=== PATIENT | male | born 1980 | race African-American/Black ===

== ENCOUNTER 2017-03-02 13:38 | Emergency (ER) | payer OTHER ==
[2017-03-02 13:54] VITALS: TEMP 98.4
--- NOTE | 2017-03-02 14:34 | ED ---
General Adult HPI - General Chief complaint: Abdominal Pain Stated complaint: Abd Pain Time Seen by Provider: 03/02/17 14:04 Source: patient, RN notes reviewed Mode of arrival: ambulatory Limitations: no limitations - History of Present Illness Initial comments: 36-year-old male presents to the emergency department with a chief complaint of scrotal and lower pelvic pain. He states this started he was going to the bathroom today. She has a history of hernia when he was a young child. He states that he felt like almost a bulge there and then he pushed it back in. He states he does not Testicle moving or feeling his hernia. He stated complaint down feels better than standing up. He denies any changes in urination. denies any recent fever or chills with this. He was concerned due to the continued pain so he thought that he should be seen. Patient denies any recent fever, chills, shortness of breath, chest pain, back pain, nausea vomiting, numbness or tingling, dysuria or hematuria, constipation or diarrhea, headaches or visual changes, or any other current symptoms. - Related Data Home Medications Medication Instructions Recorded Confirmed Albuterol Inhaler [Ventolin Hfa 1 - 2 puff INHALATION RT-Q6H PRN 03/02/17 Inhaler] Allergies Allergy/AdvReac Type Severity Reaction Status Date / Time Penicillins Allergy Rash/Hives Verified 03/02/17 14:33 Review of Systems ROS Statement: Those systems with pertinent positive or pertinent negative responses have been documented in the HPI. ROS Other: All systems not noted in ROS Statement are negative. Past Medical History Past Medical History: Asthma, GERD/Reflux History of Any Multi-Drug Resistant Organisms: None Reported Past Surgical History: Hernia Repair Past Psychological History: No Psychological Hx Reported Smoking Status: Current every day smoker Past Alcohol Use History: None Reported Past Drug Use History: None Reported General Exam Limitations: no limitations General appearance: alert, in no apparent distress ENT exam: Present: normal exam, mucous membranes moist Neck exam: Present: normal inspection. Absent: tenderness, meningismus, lymphadenopathy Respiratory exam: Present: normal lung sounds bilaterally. Absent: respiratory distress, wheezes, rales, rhonchi, stridor Cardiovascular Exam: Present: regular rate, normal rhythm, normal heart sounds. Absent: systolic murmur, diastolic murmur, rubs, gallop, clicks GI/Abdominal exam: Present: soft, normal bowel sounds. Absent: distended, tenderness, guarding, rebound, rigid exam: Present: testicular tenderness (Bilateral), circumcision, other (no hernia palpated). Absent: urethral discharge, scrotal swelling, vertical testicular lie Extremities exam: Present: normal inspection, full ROM, normal capillary refill. Absent: tenderness, pedal edema, joint swelling, calf tenderness Neurological exam: Present: alert, oriented X3 Psychiatric exam: Present: normal affect, normal mood Skin exam: Present: warm, dry, intact, normal color. Absent: rash Course Vital Signs 03/02/17 13:50 Temperature 98.4 F Pulse Rate 68 Respiratory 18 Rate Blood Pressure 131/86 O2 Sat by Pulse 97 Oximetry Medical Decision Making - Medical Decision Making 36-year-old male presents to the emergency department with a chief complaint of scrotal pain. This time there is suspicion for inguinal hernia. At this time we discussed close follow-up with the surgeon. At this time we did discuss return parameters all questions. Patient stated that he understood and he is agreement with the plan. All questions have been answered. He'll be discharged. Disposition Clinical Impression: Left inguinal hernia Disposition: HOME SELF-CARE Condition: Stable Instructions: Inguinal Hernia (ED) Additional Instructions: Please use medication as discussed. Please follow up with family doctor if symptoms have not improved over the next two days. Please return to the emergency room if your symptoms increase or worsen or for any other concerns. Referrals: Jossie Lan MD [STAFF PHYSICIAN] - 1-2 days Time of Disposition: 15:56
--- NOTE | 2017-03-02 15:24 | US ---
EXAMINATION TYPE: US scrotum with doppler. Grayscale and color Doppler Duplex imaging performed of t he scrotum. DATE OF EXAM: 03/02/2017 COMPARISON: NONE CLINICAL HISTORY: Pain. Patient states left sided pain starting today. Patient states feeling someth ing in left groin and pushing it down toward scrotal sac. EXAM MEASUREMENTS: TESTICLES: Right Testicle: 3.4 x 3.0 x 2.0 cm Left Testicle: 2.8 x 2.9 x 2.4 cm EPIDIDYMIS HEAD: Right Epididymis: 1.0 x 1.4 x 0.9 cm Left Epididymis: 1.1 x 1.0 x 0.6 cm Doppler performed to assess for testicular vascularity; good bilateral color flow and waveforms are s een. There is no evidence of testicular torsion. Presence of hydroceles: Small left Presence of varicoceles: no Echogenic abnormality in left scrotal sac, lateral to testis. Grayscale, color Doppler, spectral Doppler imaging performed of the scrotum. Testicular echotexture i s homogenous and symmetric. IMPRESSION: No evident testicular torsion. Correlate for inguinal hernia.
[2017-03-02 16:16] VITALS: BP 116/59; PULSE 58; RESP 16
== END 2017-03-02 16:16 | disposition home or self-care (01) ==
LOC: EC 13:38
DX: K40.90 Unilateral inguinal hernia, without obstruction or gangrene, not specified as recurrent (principal); F17.200 Nicotine dependence, unspecified, uncomplicated; Z88.0 Allergy status to penicillin
CPT/HCPCS: 76870; 93975; 99284

== ENCOUNTER → 2017-03-16 | Outpatient (CLI) | payer OTHER ==
--- NOTE | 2017-03-16 21:27 | CT ---
EXAMINATION TYPE: CT abdomen pelvis w con DATE OF EXAM: 03/16/2017 COMPARISON: NONE HISTORY: Lower abd pain x1 month. CT DLP: 723 mGycm Automated exposure control for dose reduction was used. TECHNIQUE: Helical acquisition of images was performed from the lung bases through the pelvis. CONTRAST: Performed with Oral Contrast and with IV Contrast, patient injected with 100ml mL of Omnipaque 300. FINDINGS: Lung bases are clear of consolidation. There is no pleural effusion. The liver spleen pancreas gallbl adder appear normal. Bile ducts are not dilated. There is no adrenal mass. Kidneys show satisfactory contrast opacification. There is no hydronephrosis. There is no retroperitoneal adenopathy. Bladder d istends smoothly. Urinary bladder is large. I see no intestinal wall thickening. There are no dilated loops. Appendix is not definitely seen. There is no sign of appendicitis. There is no evidence of a pelvic mass. There is no evidence of a hernia. Lumbar spine appears normal. IMPRESSION: NEGATIVE CT SCAN OF THE ABDOMEN AND PELVIS. I DO NOT SEE A CAUSE FOR LOWER ABDOMINAL PAIN.
== END | disposition home or self-care (01) ==
LOC: RADCTMAIN 20:51
PROVIDERS: ATTEND Surgery
DX: R10.31 Right lower quadrant pain (principal); R10.32 Left lower quadrant pain
CPT/HCPCS: 74177; Q9967

== ENCOUNTER 2017-06-06 03:32 | Inpatient (IN) | payer OTHER ==
[2017-06-06] MEDS ORDERED: SODIUM CHLORIDE 0.9% 500 ML IV ONE ×2 (03:35→04:21)
[2017-06-06] MEDS ORDERED: LORazepam 2 MG/ML INJ IV STA (03:37)
--- NOTE | 2017-06-06 03:39 | ED ---
General Adult HPI - General Stated complaint: hallucinations Time Seen by Provider: 06/06/17 03:34 Source: patient, police, EMS, RN notes reviewed - History of Present Illness Initial comments: 37-year-old male brought in by EMS and police. EMS states that initial call was for dyspnea. Patient had run several blocks. He felt he was being chased. While vitals are being obtained by EMS, the patient became very agitated, patient was hallucinating. Police were called and patient was very uncooperative. Did require multiple police officers to restrain the patient. He was he was tased by police. Patient was brought in in leather restraints. He is currently on parole with a left lower extremity tethered. Denies any substance ingestion. Denies illicit drugs or alcohol. He states he has not slept in the past one to 2 days. No known psychiatric illness. - Related Data Home Medications Medication Instructions Recorded Confirmed Albuterol Inhaler [Ventolin Hfa 1 - 2 puff INHALATION RT-Q6H PRN 03/02/17 Inhaler] Allergies Allergy/AdvReac Type Severity Reaction Status Date / Time Penicillins Allergy Rash/Hives Verified 03/02/17 14:33 Review of Systems ROS Statement: Those systems with pertinent positive or pertinent negative responses have been documented in the HPI. ROS Other: All systems not noted in ROS Statement are negative. Past Medical History Past Medical History: Asthma, GERD/Reflux History of Any Multi-Drug Resistant Organisms: None Reported Past Surgical History: Hernia Repair Past Psychological History: No Psychological Hx Reported Smoking Status: Current every day smoker Past Alcohol Use History: None Reported Past Drug Use History: None Reported General Exam General appearance: alert, appears intoxicated, in distress Head exam: Present: atraumatic, normocephalic Eye exam: Present: normal appearance, PERRL, EOMI Neck exam: Present: normal inspection. Absent: tenderness, meningismus Respiratory exam: Present: normal lung sounds bilaterally. Absent: respiratory distress, wheezes Cardiovascular Exam: Present: normal rhythm, tachycardia GI/Abdominal exam: Present: soft. Absent: distended, tenderness, guarding Extremities exam: Present: normal inspection, normal capillary refill. Absent: tenderness Back exam: Present: normal inspection Neurological exam: Present: alert. Absent: motor sensory deficit Psychiatric exam: Present: agitated, anxious Skin exam: Present: warm, dry, intact. Absent: cyanosis, diaphoretic Course Vital Signs 06/06/17 06/06/17 06/06/17 03:33 03:48 04:12 Temperature Pulse Rate 159 H 162 H 153 H Respiratory 35 H 30 H 18 Rate Blood Pressure 162/74 167/97 130/60 O2 Sat by Pulse 99 99 96 Oximetry 06/06/17 06/06/17 06/06/17 04:44 05:04 05:23 Temperature Pulse Rate 154 H 111 H 101 H Respiratory 22 18 18 Rate Blood Pressure 111/54 111/55 93/49 O2 Sat by Pulse 100 100 100 Oximetry 06/06/17 06/06/17 06/06/17 05:27 06:03 06:27 Temperature 97.7 F Pulse Rate 104 H 97 Respiratory 18 18 Rate Blood Pressure 115/59 116/67 O2 Sat by Pulse 100 100 Oximetry EKG Findings - EKG Comments: EKG Findings:: Sinus tachycardia, right superior axis deviation, rate of 155, ME interval 114, QRS duration 76, QTC 424 Procedures - Restraint - Face to Face Restraint Occurrence 1 Patient's Immediate Situation: Endangers self safety, Endangers others' safety, Endangers staff safety, Violent behavior Patient's Reaction to the Intervention: Uncooperative, Angry, Hostile, Nervous, Anxious, Aggressive Patient's Medical & Behavioral Condition: Awake, Alert, Anxious, Agitated Need to Continue or Terminate Restraint or Seclusion: Continue Face to Face Eval of Restraint Date: 06/06/17 Face to Face Eval of Restraint Time: 03:40 Medical Decision Making - Medical Decision Making 37-year-old male presenting with acute psychosis and drug overdose. Patient is severely agitated and psychotic. Patient is restrained with leather restraints , given Ativan. On initial evaluation, patient's heart rate is significantly elevated in the 160s. EKG shows sinus tachycardia. Laboratory studies are obtained, these are concerning for severe acidosis with nondetectable CO2. Labs are repeated which shows a lactic acidosis of 15 which is severely high and a CO2 of 12. ABG at that time shows normal pH. Patient given multiple boluses of normal saline. He started on a bicarbonate drip. Case is discussed with the pulmonary junior electrical engineer Dr. Bentley who will accept the patient to the ICU for close monitoring. Psychiatry will be placed on consult for evaluation. Diagnosis: Acute psychosis, rhabdomyolysis, lactic acidosis, severe anion gap metabolic acidosis. - Lab Data Result diagrams: 06/06/17 04:05 06/06/17 05:33 Lab Results 06/06/17 06/06/17 06/06/17 Range/Units 04:05 04:05 04:05 WBC 7.7 (3.8-10.6) k/uL RBC 5.44 (4.30-5.90) m/uL Hgb 16.2 (13.0-17.5) gm/dL Hct 53.7 H (39.0-53.0) % MCV 98.6 (80.0-100.0) fL MCH 29.7 (25.0-35.0) pg MCHC 30.1 L (31.0-37.0) g/dL RDW 13.1 (11.5-15.5) % Plt Count 308 (150-450) k/uL Neutrophils % 62 % Lymphocytes % 31 % Monocytes % 5 % Eosinophils % 1 % Basophils % 0 % Neutrophils # 4.7 (1.3-7.7) k/uL Lymphocytes # 2.4 (1.0-4.8) k/uL Monocytes # 0.4 (0-1.0) k/uL Eosinophils # 0.0 (0-0.7) k/uL Basophils # 0.0 (0-0.2) k/uL Hypochromasia Marked Sample Site ABG pH (7.35-7.45) ABG pCO2 (35-45) mmHg ABG pO2 (83-108) mmHg ABG HCO3 (21-25) mmol/L ABG Total CO2 (19-24) mmol/L ABG O2 Saturation (94-97) % ABG Base Excess mmol/L Fletcher Test FiO2 % Sodium 148 H (137-145) mmol/L Potassium 4.7 (3.5-5.1) mmol/L Chloride 98 (98-107) mmol/L Carbon Dioxide <5 L* (22-30) mmol/L Anion Gap mmol/L BUN 9 (9-20) mg/dL Creatinine 2.10 H (0.66-1.25) mg/dL Est GFR (CKD-EPI)AfAm 46 (>60 ml/min/1.73 sqM) Est GFR (CKD-EPI)NonAf 40 (>60 ml/min/1.73 sqM) Glucose 268 H (74-99) mg/dL Plasma Lactic Acid Jeremie (0.7-2.0) mmol/L Calcium 10.8 H (8.4-10.2) mg/dL Total Bilirubin 0.7 (0.2-1.3) mg/dL AST 48 (17-59) U/L ALT 21 (21-72) U/L Alkaline Phosphatase 75 (38-126) U/L Creatine Kinase (55-170) U/L Total Protein 9.0 H (6.3-8.2) g/dL Albumin 5.7 H (3.5-5.0) g/dL Urine Opiates Screen (NotDetected) Ur Oxycodone Screen (NotDetected) Urine Methadone Screen (NotDetected) Ur Propoxyphene Screen (NotDetected) Ur Barbiturates Screen (NotDetected) U Tricyclic Antidepress (NotDetected) Ur Phencyclidine Scrn (NotDetected) Ur Amphetamines Screen (NotDetected) U Methamphetamines Scrn (NotDetected) U Benzodiazepines Scrn (NotDetected) Urine Cocaine Screen (NotDetected) U Marijuana (THC) Screen (NotDetected) Serum Alcohol <10 mg/dL 06/06/17 06/06/17 06/06/17 Range/Units 04:43 04:48 04:48 WBC (3.8-10.6) k/uL RBC (4.30-5.90) m/uL Hgb (13.0-17.5) gm/dL Hct (39.0-53.0) % MCV (80.0-100.0) fL MCH (25.0-35.0) pg MCHC (31.0-37.0) g/dL RDW (11.5-15.5) % Plt Count (150-450) k/uL Neutrophils % % Lymphocytes % % Monocytes % % Eosinophils % % Basophils % % Neutrophils # (1.3-7.7) k/uL Lymphocytes # (1.0-4.8) k/uL Monocytes # (0-1.0) k/uL Eosinophils # (0-0.7) k/uL Basophils # (0-0.2) k/uL Hypochromasia Sample Site ABG pH (7.35-7.45) ABG pCO2 (35-45) mmHg ABG pO2 (83-108) mmHg ABG HCO3 (21-25) mmol/L ABG Total CO2 (19-24) mmol/L ABG O2 Saturation (94-97) % ABG Base Excess mmol/L Fletcher Test FiO2 % Sodium 145 (137-145) mmol/L Potassium 4.8 (3.5-5.1) mmol/L Chloride 104 (98-107) mmol/L Carbon Dioxide 12 L (22-30) mmol/L Anion Gap 29 mmol/L BUN 10 (9-20) mg/dL Creatinine 2.00 H (0.66-1.25) mg/dL Est GFR (CKD-EPI)AfAm 49 (>60 ml/min/1.73 sqM) Est GFR (CKD-EPI)NonAf 42 (>60 ml/min/1.73 sqM) Glucose 195 H (74-99) mg/dL Plasma Lactic Acid Jeremie 15.3 H* (0.7-2.0) mmol/L Calcium 10.4 H (8.4-10.2) mg/dL Total Bilirubin 0.5 (0.2-1.3) mg/dL AST 40 (17-59) U/L ALT 16 L (21-72) U/L Alkaline Phosphatase 67 (38-126) U/L Creatine Kinase (55-170) U/L Total Protein 7.7 (6.3-8.2) g/dL Albumin 4.8 (3.5-5.0) g/dL Urine Opiates Screen Not Detected (NotDetected) Ur Oxycodone Screen Not Detected (NotDetected) Urine Methadone Screen Not Detected (NotDetected) Ur Propoxyphene Screen Not Detected (NotDetected) Ur Barbiturates Screen Not Detected (NotDetected) U Tricyclic Antidepress Not Detected (NotDetected) Ur Phencyclidine Scrn Not Detected (NotDetected) Ur Amphetamines Screen Detected H (NotDetected) U Methamphetamines Scrn Detected H (NotDetected) U Benzodiazepines Scrn Not Detected (NotDetected) Urine Cocaine Screen Detected H (NotDetected) U Marijuana (THC) Screen Not Detected (NotDetected) Serum Alcohol mg/dL 06/06/17 06/06/17 06/06/17 Range/Units 04:48 05:22 05:33 WBC (3.8-10.6) k/uL RBC (4.30-5.90) m/uL Hgb (13.0-17.5) gm/dL Hct (39.0-53.0) % MCV (80.0-100.0) fL MCH (25.0-35.0) pg MCHC (31.0-37.0) g/dL RDW (11.5-15.5) % Plt Count (150-450) k/uL Neutrophils % % Lymphocytes % % Monocytes % % Eosinophils % % Basophils % % Neutrophils # (1.3-7.7) k/uL Lymphocytes # (1.0-4.8) k/uL Monocytes # (0-1.0) k/uL Eosinophils # (0-0.7) k/uL Basophils # (0-0.2) k/uL Hypochromasia Sample Site rbrac ABG pH 7.37 (7.35-7.45) ABG pCO2 39 (35-45) mmHg ABG pO2 61 L (83-108) mmHg ABG HCO3 22 (21-25) mmol/L ABG Total CO2 23 (19-24) mmol/L ABG O2 Saturation 90.5 L (94-97) % ABG Base Excess -3.0 mmol/L Fletcher Test Yes FiO2 21 % Sodium 144 (137-145) mmol/L Potassium 4.6 (3.5-5.1) mmol/L Chloride 108 H (98-107) mmol/L Carbon Dioxide 21 L (22-30) mmol/L Anion Gap 15 mmol/L BUN 11 (9-20) mg/dL Creatinine 1.80 H (0.66-1.25) mg/dL Est GFR (CKD-EPI)AfAm 55 (>60 ml/min/1.73 sqM) Est GFR (CKD-EPI)NonAf 48 (>60 ml/min/1.73 sqM) Glucose 98 (74-99) mg/dL Plasma Lactic Acid Jeremie (0.7-2.0) mmol/L Calcium 9.7 (8.4-10.2) mg/dL Total Bilirubin (0.2-1.3) mg/dL AST (17-59) U/L ALT (21-72) U/L Alkaline Phosphatase (38-126) U/L Creatine Kinase 600 H (55-170) U/L Total Protein (6.3-8.2) g/dL Albumin (3.5-5.0) g/dL Urine Opiates Screen (NotDetected) Ur Oxycodone Screen (NotDetected) Urine Methadone Screen (NotDetected) Ur Propoxyphene Screen (NotDetected) Ur Barbiturates Screen (NotDetected) U Tricyclic Antidepress (NotDetected) Ur Phencyclidine Scrn (NotDetected) Ur Amphetamines Screen (NotDetected) U Methamphetamines Scrn (NotDetected) U Benzodiazepines Scrn (NotDetected) Urine Cocaine Screen (NotDetected) U Marijuana (THC) Screen (NotDetected) Serum Alcohol mg/dL Critical Care Time Critical Care Time: Yes Total Critical Care Time: 75 Disposition Clinical Impression: Psychosis, Acute psychosis, Lactic acidosis, High anion gap metabolic acidosis Disposition: ADMITTED IP TO THIS [facility] Condition: Serious Is patient prescribed a controlled substance at d/c from ED?: No Referrals: None,Stated [Primary Care Provider] - 1-2 days Decision to Admit Reason: Admit from EC Decision Date: 06/06/17 Decision Time: 06:38
[2017-06-06] MEDS ORDERED: LORazepam 2 MG/ML INJ IM STA (03:41)
[2017-06-06 04:12] LABS: Basophils % (A) 0 %; Eosinophils % (A) 1 %; HCT 53.7 % (39.0-53.0); HGB 16.2 gm/dL (13.0-17.5); Hypochromasia Marked; Lymphocytes # (A) 2.4 k/uL (1.0-4.8); Lymphocytes % (A) 31 %; MCH 29.7 pg (25.0-35.0); MCHC 30.1 g/dL (31.0-37.0); MCV 98.6 fL (80.0-100.0); Mean Platelet Volume 8.2; Monocytes # (A) 0.4 k/uL (0-1.0); Monocytes % (A) 5 %; Neutrophils # (A) 4.7 k/uL (1.3-7.7); Neutrophils % (A) 62 %; Platelet Count 308 k/uL (150-450); RBC 5.44 m/uL (4.30-5.90); RDW 13.1 % (11.5-15.5); WBC 7.7 k/uL (3.8-10.6)
[2017-06-06 04:20] LABS: ALT 21 U/L (21-72); AST 48 U/L (17-59); Albumin 5.7 g/dL (3.5-5.0); Alkaline Phosphatase 75 U/L (38-126); Blood Urea Nitrogen 9 mg/dL (9-20); Calcium 10.8 mg/dL (8.4-10.2); Chloride 98 mmol/L (98-107); Glucose 268 mg/dL (74-99); Potassium 4.7 mmol/L (3.5-5.1); Sodium 148 mmol/L (137-145); Total Bilirubin 0.7 mg/dL (0.2-1.3)
[2017-06-06 04:37] LABS: Carbon Dioxide <5 mmol/L (22-30)
[2017-06-06] MEDS ORDERED: SODIUM CHLORIDE 0.9% 1,000 ML IV ONE ×2 (04:38→05:22)
[2017-06-06 04:59] LABS: Amphetamine Screen,Urine Detected (NotDetected); Barbiturate Screen,Urine Not Detected (NotDetected); Benzodiazepines Screen,Urine Not Detected (NotDetected); Cocaine Screen,Urine Detected (NotDetected); Methadone Screen, Urine Not Detected (NotDetected); Opiate Screen,Urine Not Detected (NotDetected); Oxycodone Screen, Urine Not Detected (NotDetected); Phencyclidine Screen,Urine Not Detected (NotDetected); Tricyclic Antidepressant,Urine Not Detected (NotDetected); Urn Cannabinoid Scrn Not Detected (NotDetected)
[2017-06-06 05:09] LABS: Albumin 4.8 g/dL (3.5-5.0); Calcium 10.4 mg/dL (8.4-10.2); Potassium 4.8 mmol/L (3.5-5.1); Total Bilirubin 0.5 mg/dL (0.2-1.3); Total Protein 7.7 g/dL (6.3-8.2)
[2017-06-06] MEDS ORDERED: DEXTROSE 5% IN WATER 1,000 ML with SODIUM BICARB (1 MEQ/ML) 150 ML IV SCH (05:30)
[2017-06-06 05:34] LABS: ABG HCO3 22 mmol/L (21-25); ABG Oxygen Saturation 90.5 % (94-97); ABG PCO2 39 mmHg (35-45); ABG PH 7.37 (7.35-7.45); ABG PO2 61 mmHg (83-108); ABG TCO2 23 mmol/L (19-24)
[2017-06-06 06:19] LABS: Anion Gap 15 mmol/L; Blood Urea Nitrogen 11 mg/dL (9-20); Calcium 9.7 mg/dL (8.4-10.2); Carbon Dioxide 21 mmol/L (22-30); Chloride 108 mmol/L (98-107); Glucose 98 mg/dL (74-99); Potassium 4.6 mmol/L (3.5-5.1); Sodium 144 mmol/L (137-145)
[2017-06-06] MEDS ORDERED: NALOXONE 0.4 MG/ML 1 ML VIAL IV PRN ×2 (06:32→09:16)
[2017-06-06 06:44] LABS: Acetaminophen <10.0 ug/mL; Salicylate <1.0 mg/dL
[2017-06-06 07:11] LABS: Glucose,Whole Blood 89 mg/dL (75-99)
[2017-06-06 08:22] VITALS: BMI 22.6
[2017-06-06] MEDS ORDERED: ACETAMINOPHEN TAB 325 MG TAB PO PRN (09:16)
[2017-06-06] MEDS ORDERED: ALPRAZolam 0.25 MG TAB PO PRN (09:16)
[2017-06-06] MEDS ORDERED: ONDANSETRON 4 MG/2 ML VIAL IVP PRN (09:23)
[2017-06-06] MEDS ORDERED: CALCIUM CARBONATE 500 MG CHEWABLE PO PRN (09:23)
[2017-06-06] MEDS ORDERED: SODIUM CHLORIDE 0.9% 1,000 ML IV SCH (09:30)
[2017-06-06] MEDS ORDERED: ENOXAPARIN 40 MG/0.4 ML SYRINGE SQ SCH (09:30)
[2017-06-06] MEDS ORDERED: ALBUTEROL NEBULIZED 2.5 MG/3 ML INHALATION PRN (09:33)
[2017-06-06] MEDS ORDERED: NICOTINE POLACRILEX 2 MG GUM BUCCAL PRN (09:47)
--- NOTE | 2017-06-06 09:50 | P.HPIM ---
History of Present Illness H&P Date: 06/06/17 Chief Complaint: dyspnea Patient is a 37-year-old -[place] male past medical history of asthma, GERD, and tobacco abuse who was initially brought into the ER by EMS for behavioral disturbances. Patient had a escorted that point in time. Apparently he had been treated with and demonstrated unusual behaviors and possible asthma attack. On EMS arrival. Sitting upright having chest pain and difficulty breathing and felt he was having an asthma attack. During her hospital patient became increasingly agitated and paranoid. EMS necessitated fleece backup and the patient ultimately was tazed by police due to uncooperative behavior and placed in restraints. On arrival in the ER EKG revealed sinus tachycardia at a rate of [address]-T wave changes. He was also found to be hypertensive with blood pressure 162/74 and an elevated respiratory rate of 35. Initial laboratory analysis showed a CBC within normal limits. Chemistry profile showed slightly elevated sodium at 148 his carbon dioxide was less then 5. ABG was obtained which showed a normal pH of 7.37 and normal pCO2 and slightly low bicarb. Lactic acid came back at 15.3. Patient received 4 L of normal saline and was placed on sodium bicarb drip. CK was slightly elevated at 600 and creatinine was elevated at 2.1. Urine drug screen came back positive for amphetamines, methamphetamines, and cocaine. Due to his extreme agitation and required a dose of 2 mg of Ativan. He was admitted to the ICU for further monitoring and care. Repeat lactic acid was improved at 0.8. Patient seen and examined at bedside. He has difficulty staying awake during questioning. He tells me that it is sore all over and hurts to move. He states yesterday he was feeling short of breath and having chest pain but this is better and he no longer feels that way. He is unable to answer me as to whether he was feeling sick or ill prior to arrival to the hospital. He does not answer further questioning to obtain a review of systems. Initially he tells me that he had a hernia repair but then states he needs surgery for hernia repair. He believes it is 2016. He was unable to tell me that he is at the hospital. I asked him about contacting family for him but he did not respond to my questioning. Unable to obtain complete review of medical information due to patient's lethargy and confusion. Information as obtained per record review of this admission and ED visit . Review of Systems Unable to obtain due to lethargy ROS unobtainable: due to mental status Past Medical History Past Medical History: Asthma, GERD/Reflux History of Any Multi-Drug Resistant Organisms: None Reported Past Surgical History: Hernia Repair Smoking Status: Current every day smoker Past Alcohol Use History: Unable to Obtain Past Drug Use History: Cocaine, Methamphetamine - Past Family History Father Additional Family Medical History / Comment(s): states alive and denies medical problems Mother Additional Family Medical History / Comment(s): Alive, No medical problems Medications and Allergies Home Medications Medication Instructions Recorded Confirmed Type Albuterol Inhaler [Ventolin Hfa 1 - 2 puff INHALATION RT-Q6H PRN 03/02/17 History Inhaler] Allergies Allergy/AdvReac Type Severity Reaction Status Date / Time Penicillins Allergy Rash/Hives Verified 03/02/17 14:33 Physical Exam Osteopathic Statement: *. No significant issues noted on an osteopathic structural exam other than those noted in the History and Physical/Consult. Vitals: Vital Signs Temp Pulse Resp BP Pulse Ox 06/06/17 08:10 86 15 140/78 98 06/06/17 08:00 84 10 L 140/78 100 06/06/17 07:50 77 16 140/78 99 06/06/17 07:40 82 15 140/78 98 06/06/17 07:30 89 14 140/78 97 06/06/17 07:20 92 15 140/78 98 06/06/17 07:10 76 13 98 06/06/17 07:06 98.0 F 87 12 99 06/06/17 06:45 97.9 F 93 18 116/55 98 06/06/17 06:27 97 18 116/67 100 06/06/17 06:03 104 H 18 115/59 100 06/06/17 05:27 97.7 F 06/06/17 05:23 101 H 18 93/49 100 06/06/17 05:04 111 H 18 111/55 100 06/06/17 04:44 154 H 22 111/54 100 06/06/17 04:12 153 H 18 130/60 96 06/06/17 03:48 162 H 30 H 167/97 99 06/06/17 03:33 159 H 35 H 162/74 99 Intake and Output 06/05/17 06/06/17 06/06/17 22:59 06:59 14:59 Intake Total 75 Output Total 400 0 Balance -400 75 Intake: IV 75 Dextrose 5% in Water 1, 75 000 ml @ 75 mls/hr IV . [id number] JEM with Sodium Bicarb (1 Meq/ml) 150 ml Rx#:[id number] Output: Urine 400 0 Straight 400 Other: # Bowel Movements 0 Weight 65.771 kg 65.7 kg General: non toxic, Mild distress, appears at stated age, normal weight Derm: Multiple tattoos, no unusual rashes/lesions no unusual ecchymoses, warm, dry Head: atraumatic, normocephalic, symmetric Eyes: EOMI, no lid lag, anicteric sclera, pupils equal round reactive to light ENT: Nose and ears atraumatic, no thrush Neck: No thyromegaly, no cervical lymphadenopathy, trachea midline, supple Mouth: no lip lesion, mucus membranes dry Cardiovascular: S1S2 reg, no murmur, positive posterior tibial pulse bilateral, no edema, capillary refill less than 2 seconds Lungs: CTA bilateral, no rhonchi, no rales , no accessory muscle use Abdominal: soft, nontender to palpation, no guarding, no appreciable organomegaly, Ext: no gross muscle atrophy, muscle strength grossly intact testing limited due to pain, no contractures, Neuro: CN II-XI grossly intact, light touch intact all 4 extremities Psych: lethargic, not oriented to place or time, appropriate affect Results CBC & Chem 7: 06/06/17 04:05 06/06/17 05:33 Labs: Abnormal Lab Results - Last 24 Hours (Table) 06/06/17 06/06/17 06/06/17 Range/Units 04:05 04:05 04:43 Hct 53.7 H (39.0-53.0) % MCHC 30.1 L (31.0-37.0) g/dL ABG pO2 (83-108) mmHg ABG O2 Saturation (94-97) % Sodium 148 H (137-145) mmol/L Chloride (98-107) mmol/L Carbon Dioxide <5 L* (22-30) mmol/L Creatinine 2.10 H (0.66-1.25) mg/dL Glucose 268 H (74-99) mg/dL Plasma Lactic Acid Jeremie (0.7-2.0) mmol/L Calcium 10.8 H (8.4-10.2) mg/dL ALT (21-72) U/L Creatine Kinase (55-170) U/L Total Protein 9.0 H (6.3-8.2) g/dL Albumin 5.7 H (3.5-5.0) g/dL Ur Amphetamines Screen Detected H (NotDetected) U Methamphetamines Scrn Detected H (NotDetected) Urine Cocaine Screen Detected H (NotDetected) 06/06/17 06/06/17 06/06/17 Range/Units 04:48 04:48 04:48 Hct (39.0-53.0) % MCHC (31.0-37.0) g/dL ABG pO2 (83-108) mmHg ABG O2 Saturation (94-97) % Sodium (137-145) mmol/L Chloride (98-107) mmol/L Carbon Dioxide 12 L (22-30) mmol/L Creatinine 2.00 H (0.66-1.25) mg/dL Glucose 195 H (74-99) mg/dL Plasma Lactic Acid Jeremie 15.3 H* (0.7-2.0) mmol/L Calcium 10.4 H (8.4-10.2) mg/dL ALT 16 L (21-72) U/L Creatine Kinase 600 H (55-170) U/L Total Protein (6.3-8.2) g/dL Albumin (3.5-5.0) g/dL Ur Amphetamines Screen (NotDetected) U Methamphetamines Scrn (NotDetected) Urine Cocaine Screen (NotDetected) 06/06/17 06/06/17 Range/Units 05:22 05:33 Hct (39.0-53.0) % MCHC (31.0-37.0) g/dL ABG pO2 61 L (83-108) mmHg ABG O2 Saturation 90.5 L (94-97) % Sodium (137-145) mmol/L Chloride 108 H (98-107) mmol/L Carbon Dioxide 21 L (22-30) mmol/L Creatinine 1.80 H (0.66-1.25) mg/dL Glucose (74-99) mg/dL Plasma Lactic Acid Jeremie (0.7-2.0) mmol/L Calcium (8.4-10.2) mg/dL ALT (21-72) U/L Creatine Kinase (55-170) U/L Total Protein (6.3-8.2) g/dL Albumin (3.5-5.0) g/dL Ur Amphetamines Screen (NotDetected) U Methamphetamines Scrn (NotDetected) Urine Cocaine Screen (NotDetected) Comments: EKG is reviewed by myself reveals normal sinus rhythm at a rate of [address]-T wave changes Thrombosis Risk Factor Assmnt - DVT/VTE Prophylaxis DVT/VTE Prophylaxis: Pharmacologic Prophylaxis ordered - Choose All That Apply Any of the Below Risk Factors Present?: No Assessment and Plan Assessment: Toxic metabolic encephalopathy -Likely due to cocaine and amphetamine use -Supportive care -Was petitioned by police and awaiting psych evaluation -Benzos as needed for agitation - currently not A and O X 3 and could not sign out AMA Acute kidney injury -Likely secondary to dehydration with possible underlying rhabdo -IV fluids -Avoid nephrotoxic agents -Monitor ins and outs -Minute checks renal ultrasound -Repeat basic metabolic profile in a.m. -If no improvement then consult nephrology Anion gap metabolic acidosis secondary to lactic acidosis -Resolved with IV fluids Elevated CPK -Likely secondary to cocaine use, Taser, and running -Repeat CPK at noon and then we will determine rechecks as needed Hypernatremia -Likely secondary to dehydration -IV fluids -Repeat in a.m. Tobacco abuse -Cessation -Nicotine replacement Asthma without exacerbation - prn albuterol Surrogate decision-maker: Patient unable to designate CODE STATUS:Full, be default DVT prophylaxis: Lovenox Discussed with: Patient, nursing, night time hospitalist Anticipated discharge: 24-[address]:home A total of 65 minutes was spent on the care of this complex patient more than 50 % of the time was spent in counseling and care coordination.
--- NOTE | 2017-06-06 12:32 | US ---
EXAMINATION TYPE: US kidneys/renal and bladder DATE OF EXAM: 06/06/2017 COMPARISON: CT CLINICAL HISTORY: ALHAJI; metabolic acidosis EXAM MEASUREMENTS: Right Kidney: 9.9 x 4.8 x 4.3 cm Left Kidney: 9.4 x 4.4 x 5.4 cm Post Void Bladder Volume:145.8ml Right Kidney: No hydronephrosis or masses seen Left Kidney: No hydronephrosis or masses seen Bladder: mobile, internal hyperechoic echoes are noted and suggestive of bladder debris Bilateral Jets seen: Yes Normal Post Void Residual: no, as > 50.0ml, and initial bladder images for bladder volume were imme diate post void on ICU patient. Cortical echogenicity is increased within the kidneys, there is loss of cortical medullary differenti ation. IMPRESSION: Abnormal increased post void residual volume, abnormal debris present within the bladder, correlate f or cystitis, medical renal disease.
[2017-06-06 13:20] VITALS: TEMP 98.2
--- NOTE | 2017-06-06 13:21 | P.CNPUL ---
History of Present Illness Consult date: 06/06/17 Requesting physician: Laura Donohue Chief complaint: Dyspnea and mental status change History of present illness: This is a 37-year-old -[place]inames[place] male, known history of asthma, tobacco abuse, possible multiple drug abuse, patient was brought into the ER by EMS with behavioral disturbances. Patient has been demonstrating some bizarre behavior. And he was experiencing some paranoid ideations and hallucinations. Apparently patient could not be managed by EMS, police responded and the patient was tazed. And he was brought into the ER in restraints. Upon evaluation in the ER, the patient was uncooperative, getting increasingly agitated, he was also noted to be tachycardic, with no significant ST-T wave changes, and he was also hypertensive, tachypneic, and tachycardic. Initial lactic acid was significantly elevated. Patient received a total of 4 L of normal saline. And placed on a sodium bicarb drip. CPK was also noted to be elevated at 600 and creatinine was 2.1. Drug screen came back positive for amphetamines and methamphetamines and cocaine. In spite of all of this the patient did not require intubation or mechanical ventilation. I saw today in the ICU, patient seems to be very comfortable, and in no distress. Complaining of aching and pain all over. Complaining of shortness of breath but he looks very comfortable and in no form of distress whatsoever. Patient seems to be quite appropriate. All labs were reviewed, CBC was normal. Patient was noted to have small anion gap of 15, CPK was still elevated at 2510, renal profile is improving with BUN of 11 creatinine of 1.80. Review of Systems Cannot be obtained, patient is a poor historian, however he has vague aches and nonspecific complaints. Past Medical History Past Medical History: Asthma, GERD/Reflux History of Any Multi-Drug Resistant Organisms: None Reported Past Surgical History: Hernia Repair Smoking Status: Current every day smoker Past Alcohol Use History: Unable to Obtain Past Drug Use History: Cocaine, Methamphetamine - Past Family History Father Additional Family Medical History / Comment(s): states alive and denies medical problems Mother Additional Family Medical History / Comment(s): Alive, No medical problems Medications and Allergies Home Medications Medication Instructions Recorded Confirmed Type Albuterol Inhaler [Ventolin Hfa 1 - 2 puff INHALATION RT-Q6H PRN 03/02/17 History Inhaler] Allergies Allergy/AdvReac Type Severity Reaction Status Date / Time Penicillins Allergy Rash/Hives Verified 03/02/17 14:33 Physical Exam Vitals: Vital Signs Temp Pulse Resp BP Pulse Ox 06/06/17 09:00 84 23 135/65 99 06/06/17 08:10 86 15 140/78 98 06/06/17 08:00 84 10 L 140/78 100 06/06/17 07:50 77 16 140/78 99 06/06/17 07:40 82 15 140/78 98 06/06/17 07:30 89 14 140/78 97 06/06/17 07:20 92 15 140/78 98 06/06/17 07:10 76 13 98 06/06/17 07:06 98.0 F 87 12 99 06/06/17 06:45 97.9 F 93 18 116/55 98 06/06/17 06:27 97 18 116/67 100 06/06/17 06:03 104 H 18 115/59 100 06/06/17 05:27 97.7 F 06/06/17 05:23 101 H 18 93/49 100 06/06/17 05:04 111 H 18 111/55 100 06/06/17 04:44 154 H 22 111/54 100 06/06/17 04:12 153 H 18 130/60 96 06/06/17 03:48 162 H 30 H 167/97 99 06/06/17 03:33 159 H 35 H 162/74 99 Intake and Output 06/05/17 06/06/17 06/06/17 22:59 06:59 14:59 Intake Total 150 Output Total 400 0 Balance -400 150 Intake: IV 150 Dextrose 5% in Water 1, 150 000 ml @ 75 mls/hr IV . [id number] JEM with Sodium Bicarb (1 Meq/ml) 150 ml Rx#:[id number] Output: Urine 400 0 Straight 400 Other: # Bowel Movements 0 Weight 65.771 kg 65.7 kg Physical Exam: Revealed a 37-year-old black male in no distress. Head: Atraumatic, normocephalic, Eyes: PERRLA, EOMI, no icterus. HEENT:[Neck is supple.] [No neck masses.] [No thyromegaly.] [No JVD.] No stridor. Moist mucous membranes. Chest: [Clear throughout, no crackles, no rhonchi, no wheezes.] Cardiac Exam: [Normal S1 and S2, no S3 gallop, no murmur.] Abdomen: [Soft, nontender, no megaly, no rebound, no guarding, normal bowel sounds.] Extremities: [No clubbing, no edema, no cyanosis.] Multiple tattoos all over were noted. Left lower extremity tether is noted Neurological Exam: Generally weak, however [No focal neurologic deficit.] Psychiatric: Lethargic, not oriented to time or person, and not oriented to place. Lymphatics: No lymphadenopathy. Results - Laboratory Findings CBC and BMP: 06/06/17 04:05 06/06/17 05:33 ABG ABG pH 7.37 (7.35-7.45) 06/06/17 05:22 ABG pCO2 39 mmHg (35-45) 06/06/17 05:22 ABG pO2 61 mmHg (83-108) L 06/06/17 05:22 ABG O2 Saturation 90.5 % (94-97) L 06/06/17 05:22 Abnormal lab findings: Abnormal Labs 06/06/17 06/06/17 06/06/17 04:05 04:05 04:43 Hct 53.7 H MCHC 30.1 L ABG pO2 ABG O2 Saturation Sodium 148 H Chloride Carbon Dioxide <5 L* Creatinine 2.10 H Glucose 268 H Plasma Lactic Acid Jeremie Calcium 10.8 H ALT Creatine Kinase Total Protein 9.0 H Albumin 5.7 H Ur Amphetamines Screen Detected H U Methamphetamines Scrn Detected H Urine Cocaine Screen Detected H 06/06/17 06/06/17 06/06/17 04:48 04:48 04:48 Hct MCHC ABG pO2 ABG O2 Saturation Sodium Chloride Carbon Dioxide 12 L Creatinine 2.00 H Glucose 195 H Plasma Lactic Acid Jeremie 15.3 H* Calcium 10.4 H ALT 16 L Creatine Kinase 600 H Total Protein Albumin Ur Amphetamines Screen U Methamphetamines Scrn Urine Cocaine Screen 06/06/17 06/06/17 06/06/17 05:22 05:33 11:45 Hct MCHC ABG pO2 61 L ABG O2 Saturation 90.5 L Sodium Chloride 108 H Carbon Dioxide 21 L Creatinine 1.80 H Glucose Plasma Lactic Acid Jeremie Calcium ALT Creatine Kinase 2510 H Total Protein Albumin Ur Amphetamines Screen U Methamphetamines Scrn Urine Cocaine Screen Assessment and Plan Assessment: Impression: Acute multiple drug overdose including cocaine, amphetamine, and methamphetamine. Acute toxic encephalopathy secondary to drug overdose. Acute kidney injury secondary to rhabdomyolysis and possible component of hypovolemia. Acute anion gap metabolic acidosis with lactic acidosis, responded well to hydration only. History of bronchial asthma, presently under control. Recommendation: Continue IV fluids, updrafts, GI and DVT prophylaxis, sodium bicarb, monitor closely in the ICU, and will follow. Continue to have a sitter at bedside. Time with Patient: Greater than 30
--- NOTE | 2017-06-06 13:41 | XR ---
EXAMINATION TYPE: XR chest 1V portable DATE OF EXAM: 06/06/2017 COMPARISON: NONE HISTORY: Shortness of breath and left-sided chest pain TECHNIQUE: Single frontal view of the chest is obtained. FINDINGS: There is no focal air space opacity, pleural effusion, or pneumothorax seen. The cardiac silhouette size is within normal limits. There are overlying cardiac leads. Patient is rotated to the right. The osseous structures are intact. IMPRESSION: No acute process.
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
[2017-06-06] MEDS ORDERED: HEPARIN SODIUM,PORCINE 5,000 UNIT/ML 1 ML VIAL SQ SCH (16:00)
[2017-06-06 18:05] VITALS: BP 142/77; PULSE 91; RESP 15
--- NOTE | 2017-06-06 18:43 | P.DS ---
Providers Date of admission: 06/06/17 06:39 Expected date of discharge: 06/06/17 Attending physician: Joy Antonio MD Consults: 06/06/17 06:13 Consult Physician Urgent Consulting Provider: Marco Snow Consult Reason/Comments: Acute psychosis, drug overdose Do you want consulting provider notified?: Yes, Notify in am 06/06/17 06:32 Consult Physician Urgent Consulting Provider: Stefany Bentley Consult Reason/Comments: Intensive care management Do you want consulting provider notified?: Already Contacted Primary care physician: Stated None - Discharge Diagnosis(es) (1) Left against medical advice Current Visit: Yes Status: Acute (2) Toxic metabolic encephalopathy Current Visit: Yes Status: Resolved (3) ALHAJI (acute kidney injury) Current Visit: Yes Status: Acute (4) Elevated CPK Current Visit: Yes Status: Acute (5) Hypernatremia Current Visit: Yes Status: Acute (6) Tobacco abuse Current Visit: Yes Status: Acute (7) High anion gap metabolic acidosis Current Visit: Yes Status: Acute (8) Lactic acidosis Current Visit: Yes Status: Acute (9) Asthma Current Visit: Yes Status: Chronic Hospital Course: PATIENT LEFT AGAINST MEDICAL ADVICE Patient is a 37-year-old -[place] male past medical history of asthma, GERD, and tobacco abuse who was initially brought into the ER by EMS for shortness of breath and behavioral disturbances. Patient had a police escort at that point in time. Apparently he was at [address] demonstrated unusual behaviors and possible asthma attack. On EMS arrival he was sitting upright having chest pain and difficulty breathing and felt he was having an asthma attack. During drive to the hospital patient became increasingly agitated and paranoid. EMS and police were at the ambulence bay and the patient ultimately was tazed by police due to uncooperative behavior and placed in restraints. On arrival in the ER EKG revealed sinus tachycardia at a rate of [address]-T wave changes. He was also found to be hypertensive with blood pressure 162/74 and had an elevated respiratory rate of 35. Initial laboratory analysis showed a CBC within normal limits. Chemistry profile showed slightly elevated sodium at 148 his carbon dioxide was less then 5. ABG was obtained which showed a normal pH of 7.37 and normal pCO2 and slightly low bicarb. Lactic acid came back at 15.3. Patient received 4 L of normal saline and was placed on sodium bicarb drip. CK was slightly elevated at 600 and creatinine was elevated at 2.1. Urine drug screen came back positive for amphetamines, methamphetamines, and cocaine. Due to his extreme agitation he required a dose of 2 mg of Ativan. He was admitted to the ICU for further monitoring and care. Repeat lactic acid was improved at 0.8. Initially in the ICU he was lethargic likely secondary to Ativan use and unable to stay awake for questioning. His bicarb drip was transitioned normal saline as his acidosis had improved and lactic acid was normalized. he was complaining of all over body aches. Despite 4L of IVF his cpk continued to increase. He was seen by psychiatry in the late afternoon with note at 1504. It was determined that he did not need a sitter or suicide precautions and that he could be discharged when medically cleared. he was evasive in questioning but was not homicidal or confused. I was called around 530 pm stating that the patient wanted to leave AMA. I saw the patient at bedside. He did agree to see me and told me that his family does not want him to be stuck with anymore needles and that they are coming to pick him up. He was able to tell me that he will go to see his family physician and get treatment. He could tell me that he is at [facility] and that it is June 06 2017. He was able to do a tell back that I wanted him to have more fluids and that we were worried about his kidneys. He is insistent that he wants to leave and understands that his medical condition could worsen resulting in kidney failure, dialysis, additional poor outcomes and even . He is competent to make these decision. He is free from Hallucinations and delusions. He did sign the AMA form and stated that he would see his family doctor. After he signed the AMA form but when he was still in the unit the police arrived due to a warrant. They were provided with a note detailing that he was leaving against medical advice but was competent to do so and that he was seen by psychiatry and it was determined he could leave when medically stable. A total of 45 minutes was spent on preparation coordination of this complex discharge. Pertinent Studies: EKG-sinus tachycardia Chest x-ray-no acute process Renal ultrasound-abnormal increased post void residual volume, abnormal debridement present within the bladder correlate for cystitis or medical renal disease Patient Condition at Discharge: Serious Plan - Discharge Summary Discharge Rx Participant: Yes New Discharge Prescriptions: No Action Albuterol Inhaler [Ventolin Hfa Inhaler] 1 - 2 puff INHALATION RT-Q6H PRN PRN Reason: Shortness Of Breath Discharge Medication List Albuterol Inhaler [Ventolin Hfa Inhaler] 1 - 2 puff INHALATION RT-Q6H PRN [History] Follow up Appointment(s)/Referral(s): None,Stated [Primary Care Provider] - 1-2 days
[2017-06-06 20:05] LABS: Hemoglobin A1C 5.3 % (4.0-6.0)
[2017-06-06] MEDS ORDERED: DOCUSATE 100 MG CAP PO SCH (21:00)
[2017-06-06] MEDS ORDERED: MELATONIN 5 MG TABLET PO PRN (21:00)
== END 2017-06-06 18:44 | disposition left against medical advice (07) | DRG 917 ==
LOC: EC 03:32 → 6ICU 06:39
PROVIDERS: ADMIT Internal Medicine; ATTEND Internal Medicine
DX: T40.5X1A Poisoning by cocaine, accidental (unintentional), initial encounter (principal); G92 Toxic encephalopathy; F23 Brief psychotic disorder; E87.2 Acidosis; N17.9 Acute kidney failure, unspecified; M62.82 Rhabdomyolysis; E87.0 Hyperosmolality and hypernatremia; T43.621A Poisoning by amphetamines, accidental (unintentional), initial encounter; J45.909 Unspecified asthma, uncomplicated; K21.9 Gastro-esophageal reflux disease without esophagitis; R45.1 Restlessness and agitation; E86.0 Dehydration; F17.200 Nicotine dependence, unspecified, uncomplicated; R00.0 Tachycardia, unspecified; F14.90 Cocaine use, unspecified, uncomplicated; F15.90 Other stimulant use, unspecified, uncomplicated; Z78.1 Physical restraint status; Z65.3 Problems related to other legal circumstances; Y92.524 Gas station as the place of occurrence of the external cause; Z71.6 Tobacco abuse counseling
CPT/HCPCS: 36415; 36600; 51701; 71045; 76770; 80048; 80053; 80306; 80320; 82550; 82805; 83036; 83520; 83605; 85025; 93005; 96361; 96365; 96372; 99291